=== PATIENT | female | born 1980 | race Two or more races ===

== ENCOUNTER 2023-03-31 09:37 | Outpatient (AMB) | payer OTHER, SELFPAY ==
--- NOTE | 2023-03-31 09:53 | MHC.OFFVIS ---
Intake Vital Signs 03/31/23 09:58 Height 5 ft 1 in Weight 193 lb BMI 36.5 BP 104/78 Blood Pressure Location Rt brachial Pulse 78 Pulse Source Pulse Oximeter Pulse Oximetry (%) 97 Oxygen Delivery Method Room Air Intake Visit Reasons: E-POND SCALER: Migraines-Confirmed Intake Note: Patient presents for migraines. Patient states I have mild migraine right now,I get them about twice a month . Allergies No Known Allergies Allergy (Verified 03/31/23 09:56) Medication List - Last Reconciled 03/31/23 by GHAZAL Estrella cetirizine 10 mg PO DAILY diclofenac sodium 1% topical multivitamin (One-A-Day Essential tablet) 1 tab PO DAILY sumatriptan succinate mg PO HPI HPI Comments History of Present Illness Details Right-handed 42-yr-old female presents for new pt evaluation of headache disorder. Pt reports she has had migraine since adolescence. She reports she has had headache on and off for years. In August, she had a more severe, more prolonged headache that lasted 3 weeks w/o any known preceding cause. Headache questionnaire: Previous work-up? None Typical headache characteristics: Prodrome symptoms? None Aura? No preceding auras. Location, quality, characteristics? Mid-frontal and bilateral eye pressure pain. Pain intensity? Can 8-10/10 Associated symptoms? Sees spots during the SÁNCHEZ, photophobia, phonophobia, osmophobia, dizziness, N/V, anorexia, has an area on top of head of allodynia, brain fog, activity intolerence Focal weakness, Parethesias, Autonomic s/s? None Postdrome? Fading headache Triggers? Maybe noise Any positional, valsalva, exertional, sexual activity triggers? None Menstrual triggers? Unsure- but maybe perimenopausal Time of day? During the daytime Duration/Frequency? Can have 3 mild-mod SÁNCHEZ days per month, and 1 severe SÁNCHEZ attack that lasts 3-4 days (but the longest attack was 3 weeks). How does headache impact your life? Cannot do her usual activities Current acute medication use/interventions: Advil. Previous acute medication use: None Current preventative medication use: None Previous preventative medication use: None Non-pharmacological interventions: Rest Other history of headache disorder? None History of musculoskeletal disorders or injury? Cervical arthritis History of concussion/head injury? Maybe a concussion at age 4 yo. History of mood disorder? mild anxiety History of sleep disorder? does not sleep well. can wake up and have difficulty falling back asleep. endorses loud snoring, leg cramps, daytime sleepiness. History of respiratory disease? none History of CV disease? none History of coagulopathy? none History of endocrine or metabolic disease? none History of seizure? none History of GI disorder? Denies constipation Family planning? None Family history of migraine or other headache disorder? Her mother has migraine and anemia. Her brother has migraine. Her eldest son has DUSTIN and migraine. Her dad has DUSTIN. [facility]LY [facility] Medical History Plantar fasciitis Anxiety Pelvic congestion syndrome TBI (traumatic brain injury) Vitamin D deficiency CTS (carpal tunnel syndrome) Learning disability Surgical History (Updated 03/31/23 @ 09:57 by TRUPTI Hastings) History of carpal tunnel release H/O tubal ligation H/O section Family History Father Myocardial infarct Paternal Grandmother Diabetes Mother Anemia Son Asthma Social History Patient Tobacco Use Status: Former Tobacco user Review of Systems Const Details: See scanned ROS form Physical Exam Vital Signs: Last Vital Signs Pulse 78 03/31/23 09:58 BP 104/78 03/31/23 09:58 Pulse Ox 97 03/31/23 09:58 Oxygen Delivery Method Room Air 03/31/23 09:58 BMI result Body Mass Index 36.5 Const Orientation/consciousness: patient oriented x3 HEENT Other: No palpable scalp tenderness. Head: Yes normocephalic Resp Effort & Inspection: normal respiratory effort and able to speak in complete sentences Neuro Other: Gait steady, slwoer- Wearing LLE walking boot General: patient oriented x3 Cranial nerves: Yes CN's II-XII intact bilaterally (w/ exception of slight bilateral decreased sensation/pressure in TMJ region) Cognition (Neuro): normal cognition Motor exam (neuro): 5/5 motor strength present throughout Deep tendon reflexes (DTR's): Right triceps reflex intensity grade: 2+, Left triceps reflex intensity grade: 2+, Rt Biceps (C5, C6): 2+, Left biceps reflex intensity grade: 2+, Right brachioradialis reflex intensity grade: 2+, Left brachioradialis reflex intensity grade: 2+, Right patellar reflex intensity grade: 1+ and Left patellar reflex intensity grade: 1+ Coordination: [id number] test normal Pupils: Normal pupillary reactivity/response: bilateral Psych Appearance: grossly normal Mental Status: mental status grossly normal Speech and movement: Normal speech and movement present Affect: normal affect Attitude: cooperative Thought process: Normal thought process present Assessment & Plan Assessment & Plan (1) Migraine without aura: Code(s): G43.009 - Migraine without aura, not intractable, without status migrainosus (2) Snoring: Code(s): R06.83 - Snoring (3) Excessive daytime sleepiness: Comment: ESS 10 Code(s): G47.19 - Other hypersomnia (4) Sleep difficulties: Code(s): G47.9 - Sleep disorder, unspecified Plan Pt advised to undergo HST to assess for sleep apnea For overall headache management: Discussed importance of good self-care, including but not limited to maintaining a healthy diet, adequate fluid intake, adequate sleep, and engaging in regular physical activity. For headache triggers: Track headaches, especially after any treatment regimen changes. Migraine [employer] is one of many headache tracking apps. Light sensitivity tips: Patient may try blue light filtering glasses, green glasses, green light therapy.. Noise sensitivity tips: Patient may try noise cancelling ear plugs For acute headache treatment: Discussed importance of taking acute medications at the first sign of headache, however stressed importance of avoiding acute medication overuse (especially with combined headache medications). Trial Rizatriptan 10mg tab, 1/2 - 1 tab (5-10mg) at onset of headache, may repeat in 2 hours. Max of 2 tabs (200mg) per 24 hours. May adjunct with OTC Tylenol 650mg q 4 hours, Ibuprofen (liquigel) 600mg q 6 hours, or Naproxen (liquigel) 440mg q 12 hrs prn. Reviewed potential adverse effects of triptans, including but not limited to nausea, fatigue, chest tightness/tingling (usually passes within a few minutes), medication overuse headaches. Previous acute migraine medication trials: Sumatriptan 50mg- ineffective. Acute migraine medication contraindications: None at this time For headache prevention medication: Discussed that preventative medications should be taken routinely as prescribed for best effect, it may take several weeks for full effect to take effect. Start Riboflavin 400mg qam Start Magnesium 400mg qhs Previous migraine prevention medication trials: None Migraine prevention medication contraindications: None at this time Pt to follow-up in 3 months or sooner prn. Orders: Orders RT home sleep study Today G47.19 - Other hypersomnia, G47.9 - Sleep disorder, unspecified, R06.83 - Snoring Medications: New rizatriptan max 2 tabs per day or 4 tabs per week 5 - 10 mg (0.5 - 1 x 10 mg) PO Q2H 21 days PRN 12 tabs 3RF migraine headache magnesium oxide may hold for loose stools 400 mg PO BEDTIME 30 days 30 tabs 6RF riboflavin (vitamin B2) 400 mg PO DAILY 30 days 30 tabs 6RF Coding Level of Care Code New Pt Level 4 (61891) Diagnoses Migraine without aura G43.009 Snoring R06.83 Excessive daytime sleepiness G47.19 Sleep difficulties G47.9
[2023-03-31 09:58] VITALS: BP 104/78; PULSE 78; O2SAT 97; BMI 36.5
== END 2023-03-31 11:08 | disposition home or self-care (01) ==
PROVIDERS: PCP Internal Medicine; Referring Provider Internal Medicine; Visit Provider Nurse Practitioner Family
DX: G43.009 Migraine without aura, not intractable, without status migrainosus (principal); R06.83 Snoring; G47.19 Other hypersomnia; G47.9 Sleep disorder, unspecified
CPT/HCPCS: 99204

== ENCOUNTER → 2023-03-31 09:37 | Outpatient (BNVA) | payer OTHER, SELFPAY | PROVIDERS: PCP Internal Medicine; Referring Provider Internal Medicine; Visit Provider Nurse Practitioner Family | DX: G43.009 Migraine without aura, not intractable, without status migrainosus (principal); G47.19 Other hypersomnia; G47.9 Sleep disorder, unspecified; R06.83 Snoring | CPT/HCPCS: 99202 ==

== ENCOUNTER → 2023-05-20 09:28 | Outpatient (REF) | payer OTHER, SELFPAY | LOC: HO.SL 09:28 | PROVIDERS: PCP Internal Medicine; Visit Provider Nurse Practitioner Family | DX: G47.19 Other hypersomnia (principal); G47.9 Sleep disorder, unspecified; R06.83 Snoring | CPT/HCPCS: 95806 ==

== ENCOUNTER → 2023-05-20 09:42 | Outpatient (BNV) | payer OTHER, SELFPAY | PROVIDERS: PCP Internal Medicine; Visit Provider Psychiatry & Neurology Neurology | DX: R06.83 Snoring (principal) | CPT/HCPCS: 95806 ==

== ENCOUNTER 2023-07-31 10:37 | Outpatient (AMB) | payer OTHER, SELFPAY ==
--- NOTE | 2023-07-31 10:38 | MHC.OFFVIS ---
Intake Intake Visit Reasons: 4 mnts f/u for migraines-Confirmed Intake Note: Patient following up for migraines which still comes and go with a lot of pressure on nose in which she gets very congested Allergies No Known Allergies [No Known Allergies*] Allergy (Unverified 07/31/23 10:38) Medication List - Last Reconciled 07/31/23 by GHAZAL Estrella cetirizine 10 mg PO DAILY diclofenac sodium 1% topical magnesium oxide 400 mg PO BEDTIME 30 days multivitamin (One-A-Day Essential tablet) 1 tab PO DAILY riboflavin (vitamin B2) 400 mg PO DAILY 30 days rizatriptan 5 - 10 mg (0.5 - 1 x 10 mg) PO Q2H PRN 21 days sumatriptan succinate mg PO HPI HPI Comments History of Present Illness Details 43-yr-old female presents for f/u televideo visit via [employer] App. Pt denies any significant interval medical changes. Pt continues to have head pressure- now occurring most morning and comes back later in the day. Her nose becomes stuffy every night. She started B2 and Mag. She is also taking Gabapentin 400mg 1-2 times a day. She tried Rizatriptan- states it did not help. The HST showed AHI 0.7 per hour and O2 marivel 83%, with SpO2 under 90% for 5 minutes of study. Baseline headache characteristics: Severe, Mid-frontal and bilateral eye pressure pain a/w seeing spots during the SÁNCHEZ, photophobia, phonophobia, osmophobia, dizziness, N/V, anorexia, has an area on top of head of allodynia, brain fog, activity PFSH Medical History Plantar fasciitis Anxiety Pelvic congestion syndrome TBI (traumatic brain injury) Vitamin D deficiency CTS (carpal tunnel syndrome) Learning disability Surgical History History of carpal tunnel release H/O tubal ligation H/O section Family History Father Myocardial infarct Paternal Grandmother Diabetes Mother Anemia Son Asthma Social History Patient Tobacco Use Status: Former Tobacco user Physical Exam Const General: cooperative and no acute distress Orientation/consciousness: patient oriented x3 Resp Effort & Inspection: normal respiratory effort and able to speak in complete sentences Neuro General: patient oriented x3 Cognition (Neuro): normal cognition Psych Appearance: grossly normal Mental Status: mental status grossly normal Speech and movement: Normal speech and movement present Affect: normal affect Attitude: cooperative Assessment & Plan Assessment & Plan (1) Migraine without aura: Code(s): G43.009 - Migraine without aura, not intractable, without status migrainosus (2) Sleep difficulties: Code(s): G47.9 - Sleep disorder, unspecified Plan Review HST- inconclusive. Patient is not interested in undergoing follow-up in lab sleep study at this time. ? For overall headache management: Continue to optimize good self-care, including but not limited to maintaining a healthy diet, adequate fluid intake, adequate sleep, and engaging in regular physical activity. For headache triggers: Track headaches. Light sensitivity tips: Patient may try blue light filtering glasses, green glasses, green light therapy.. Noise sensitivity tips: Patient may try noise cancelling ear plugs ? For acute headache treatment: Hold Rizatriptan 10mg tab- ineffective. Trial naratriptan p.r.n. Reviewed potential adverse effects of triptans, including but not limited to nausea, fatigue, chest tightness/tingling (usually passes within a few minutes), medication overuse headaches. Previous acute migraine medication trials: Sumatriptan 50mg- ineffective. Acute migraine medication contraindications: None at this time ? For headache prevention medication: Continue Riboflavin 400mg qam Continue Magnesium 400mg qhs Trial 25-50 mg q.h.s. Previous migraine prevention medication trials: None Migraine prevention medication contraindications: None at this time ? ? Pt to follow-up in 3-4 months or sooner prn. Medications: New topiramate 25 - 50 mg (1 - 2 x 25 mg) PO BEDTIME 30 days 60 tabs 3RF naratriptan take 1/2 - 1 tab at onset of headache; if no relief may repeat 1 tab after at least 4 hrs; max = 2 tabs/24 hrs orally PRN; 30 days 12 tabs 3RF migraine headache Telehealth Telehealth Location of provider rendering services: practice address Location of patient: address on file Patient Identification confirmed using: Name, : Yes Telehealth method: video Patient verbally consented to treatment: Yes Patient verbally consented to billing insurance company: Yes Patient informed of any privacy concerns related to visit: Yes Minutes spent on Phone/Video with Pt.: 24 Coding Level of Care Code Tele Est Pt Level 4 (63035) Diagnoses Migraine without aura G43.009 Sleep difficulties G47.9
== END 2023-07-31 14:27 | disposition home or self-care (01) ==
LOC: HO.HSMS 10:37
PROVIDERS: PCP Internal Medicine; Visit Provider Nurse Practitioner Family
DX: G43.009 Migraine without aura, not intractable, without status migrainosus (principal); G47.9 Sleep disorder, unspecified
CPT/HCPCS: 99214

== ENCOUNTER → 2023-07-31 10:37 | Outpatient (BNVA) | payer OTHER, SELFPAY | PROVIDERS: PCP Internal Medicine; Visit Provider Nurse Practitioner Family ==

== ENCOUNTER 2023-11-25 09:04 | Outpatient (AMB) | payer OTHER, SELFPAY ==
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
[2023-11-25 09:35] VITALS: BP 132/80; PULSE 72; O2SAT 97; BMI 37.8
== END 2023-11-25 10:38 | disposition home or self-care (01) ==
PROVIDERS: PCP Internal Medicine; Visit Provider Nurse Practitioner Family
DX: G43.009 Migraine without aura, not intractable, without status migrainosus (principal); M79.672 Pain in left foot; F43.20 Adjustment disorder, unspecified; F41.9 Anxiety disorder, unspecified
CPT/HCPCS: 99214

== ENCOUNTER → 2023-11-25 09:04 | Outpatient (BNVA) | payer OTHER, SELFPAY | PROVIDERS: PCP Internal Medicine; Visit Provider Nurse Practitioner Family | DX: G43.009 Migraine without aura, not intractable, without status migrainosus (principal); M79.672 Pain in left foot; F43.20 Adjustment disorder, unspecified; F41.9 Anxiety disorder, unspecified | CPT/HCPCS: 99212 ==

== ENCOUNTER 2024-06-24 15:12 | Outpatient (AMB) | payer OTHER, SELFPAY ==
[2024-06-24 15:27] VITALS: PULSE 68; O2SAT 98; BMI 38.0
--- NOTE | 2024-06-24 15:27 | MHC.OFFVIS ---
Vital Signs 06/24/24 15:27 Height 5 ft 1 in Weight 201 lb 6 oz BMI 38.0 Pulse 68 Pulse Source Pulse Oximeter Pulse Oximetry (%) 98 Oxygen Delivery Method Room Air Intake Visit Reasons: Follow up Allergies No Known Allergies [No Known Allergies*] Allergy (Verified 11/25/23 09:27) Medication List - Last Reconciled 06/24/24 by GHAZAL Estrella alpha lipoic acid 600 mg PO DAILY 30 days bupropion HCl XL 300 mg PO QAM cetirizine 20 mg PO DAILY diclofenac sodium 1% topical ibuprofen 800 mg PO TID magnesium oxide 400 mg PO BEDTIME 30 days multivitamin (One-A-Day Essential tablet) 1 tab PO DAILY naratriptan take 1/2 - 1 tab at onset of headache; if no relief may repeat 1 tab after at least 4 hrs; max = 2 tabs/24 hrs orally PRN; 30 days riboflavin (vitamin B2) 400 mg PO DAILY 30 days spironolactone 50 mg PO BID topiramate 75 - 100 mg (3 - 4 x 25 mg) PO BEDTIME 30 days HPI Comments Details: 43-yr-old female presents for f/u visit for migraine. She continues to have left heel region lateral numbness and tingling. Recently her shoe was scratching this area, and she did not realize it until after she took her shoe off and saw the abrasions and bloody drainage. She continues to have intermittent left ankle swelling. She has a history of left foot/ankle surgery. She states that she did have numbness and tingling afterwards, but is worse now. She can have some pins and needles in the right foot as well, but only if she has been walking for a long time. 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 Now taking Topiramate 100mg qhs- feels like she is tolerating it ok. The naratriptan has been helpful and tolerated well. Baseline headache characteristics: Severe, Mid-frontal and bilateral eye pressure pain a/w seeing spots during the [place], photophobia, phonophobia, osmophobia, dizziness, N/V, anorexia, has an area on top of head of allodynia, brain fog, activity PFSH Medical History Plantar fasciitis Anxiety Pelvic congestion syndrome TBI (traumatic brain injury) Vitamin D deficiency CTS (carpal tunnel syndrome) Learning disability Surgical History History of carpal tunnel release H/O tubal ligation H/O section Family History Father Myocardial infarct Paternal Grandmother Diabetes Mother Anemia Son Asthma Social History Patient Tobacco Use Status: Former Tobacco user Physical Exam Vital Signs: Last Vital Signs Pulse 68 06/24/24 15:27 Pulse Ox 98 06/24/24 15:27 Oxygen Delivery Method Room Air 06/24/24 15:27 BMI result Body Mass Index 38.0 Const General: cooperative and no acute distress Orientation/consciousness: patient oriented x3 Resp Effort & Inspection: normal respiratory effort and able to speak in complete sentences Neuro General: patient oriented x3 Cranial nerves: Yes CN's II-XII intact bilaterally Cognition (Neuro): normal cognition Psych Appearance: grossly normal Mental Status: mental status grossly normal Speech and movement: Normal speech and movement present Affect: normal affect Attitude: cooperative Assessment & Plan Assessment & Plan (1) Migraine without aura: Code(s): G43.009 - Migraine without aura, not intractable, without status migrainosus Category: Medical (2) Left foot pain: Code(s): M79.672 - Pain in left foot Category: Medical (3) Anxiety: Code(s): F41.9 - Anxiety disorder, unspecified Category: Medical (4) Numbness of left foot: Code(s): R20.0 - Anesthesia of skin Category: Medical (5) Paresthesia of right foot: Code(s): R20.2 - Paresthesia of skin Category: Medical Plan For LLE foot pain/numbness, swelling, and RLE foot paresthesias: Alpha-lipic acid 600mg qam. Encouraged patient to continue to do daily foot checks Trial OTC medium compression socks and wearing walking shoes at work. Discussed trying Amitriptyline, however patient would like to know exactly what is causing these symptoms 1st. Will request BLE EMG/NCS at [facility] per patient request. ? For overall headache management: Continue to optimize good self-care, including but not limited to maintaining a healthy diet, adequate fluid intake, adequate sleep, and engaging in regular physical activity. Track headaches. Light sensitivity tips: Patient may try blue light filtering glasses, green glasses, green light therapy.. Noise sensitivity tips: Patient may try noise cancelling ear plugs ? For acute headache treatment: Continue naratriptan p.r.n. Previous acute migraine medication trials: Sumatriptan 50mg- ineffective. Rizatriptan 10mg tab- ineffective. Acute migraine medication contraindications: None at this time ? For headache prevention medication: Continue Riboflavin 400mg qam Continue Magnesium 400mg qhs Continue Topirmate 100mg qhs.l. Previous migraine prevention medication trials: None Migraine prevention medication contraindications: None at this time ? ? Will follow-up upon review of above and patient to follow-up in clinic in 6 months or sooner prn. Orders: Orders NE electromyogram (EMG) Today M79.672 - Pain in left foot, R20.0 - Anesthesia of skin, R20.2 - Paresthesia of skin NE nerve conduction velocity Today M79.672 - Pain in left foot, R20.0 - Anesthesia of skin, R20.2 - Paresthesia of skin Medications: Refilled naratriptan take 1/2 - 1 tab at onset of headache; if no relief may repeat 1 tab after at least 4 hrs; max = 2 tabs/24 hrs orally PRN; 30 days 12 tabs 6RF migraine headache alpha lipoic acid 600 mg PO DAILY 30 days 30 caps 6RF Coding Level of Care Code Est Pt Level 4 (94240) Diagnoses Migraine without aura G43.009 Left foot pain M79.672 Anxiety F41.9 Numbness of left foot R20.0 Paresthesia of right foot R20.2
== END 2024-06-24 16:00 ==
PROVIDERS: PCP Internal Medicine; Visit Provider Nurse Practitioner Family
DX: G43.009 Migraine without aura, not intractable, without status migrainosus (principal); M79.672 Pain in left foot; F41.9 Anxiety disorder, unspecified; R20.0 Anesthesia of skin; R20.2 Paresthesia of skin
CPT/HCPCS: 99214

== ENCOUNTER → 2024-06-24 15:12 | Outpatient (BNVA) | payer OTHER, SELFPAY | PROVIDERS: PCP Internal Medicine; Visit Provider Nurse Practitioner Family | DX: G43.009 Migraine without aura, not intractable, without status migrainosus (principal); M79.672 Pain in left foot; F41.9 Anxiety disorder, unspecified; R20.0 Anesthesia of skin; R20.2 Paresthesia of skin | CPT/HCPCS: 99212 ==